=== PATIENT | female | born 1985 | race Caucasian/White ===

== ENCOUNTER 2016-10-30 23:38 | Emergency (ER) | payer SELFPAY | END 2016-10-31 00:24 | disposition left against medical advice (07) | LOC: ER 23:47 | DX: Z53.21 Procedure and treatment not carried out due to patient leaving prior to being seen by health care provider (principal) ==

== ENCOUNTER 2017-05-27 14:25 | Emergency (ER) | payer OTHER ==
[~2017-05-27] VITALS: Ht 157.5 cm; Wt 53.5 kg
--- NOTE | 2017-05-27 15:00 | NUR ---
URINE SENT TO LAB
[2017-05-27] MEDS ORDERED: IBUPROFEN 600 MG TABLET PO ONE ×3 (15:07→15:30)
--- NOTE | 2017-05-27 15:18 | NUR ---
PHARMACY - PT ACCIDENTALLY DROPPED THE MOTRIN,
[2017-05-27 16:20] VITALS: BP 118/65
--- NOTE | 2017-05-27 16:21 | NUR ---
Patient discharged to home in stable condition. Written and verbal after care instructions given. Patient verbalizes understanding of instruction.IV removed. Catheter intact and site benign. Pressure and 4x4 applied to site. No bleeding noted.
== END 2017-05-27 16:22 ==
LOC: ER 14:26
DX: S80.02XA Contusion of left knee, initial encounter (principal); R51 Headache; Y08.89XA Assault by other specified means, initial encounter; Y93.89 Activity, other specified; Y92.89 Other specified places as the place of occurrence of the external cause; Y99.8 Other external cause status
CPT/HCPCS: 73564; 84703; 99284; A4606; A6402; Z7610